=== PATIENT | female | born 1945 | race Caucasian/White ===

== ENCOUNTER 2016-10-15 04:05 | Emergency (ER) | payer MEDICARE, MEDICAID ==
[~2016-10-15] VITALS: Ht 160 cm; Wt 52.3 kg
[2016-10-15 04:19] VITALS: BP 145/70; PULSE 88; RESP 16; O2SAT 100
--- NOTE | 2016-10-15 04:22 | ED.REPORT ---
HPI-Abd Pain F 40 and Over Date of Service Oct 15, 2016 ED Provider: Anival Huston MD Patient is a 70 year old female with a history of breast cancer s/p lumpectomy who presents to the ED due to right sided abdominal pain that began yesterday morning. The patient states that the pain begins when she stands up and improves whenever she sits down. This pattern happened several times yesterday. However since 8pm last night the pain was constant, no matter the position. She states that the pain sometimes radiates to her back. Patient reports similar pain in the past, but it always resolved. Patient has previously had an appendectomy and . She denies a history of kidney stones but she has previously had a UTI. Patient admits to nausea and subjective fever but denies dysuria, diarrhea, or vomiting. Nursing Notes Stated Complaint: PAIN ON RIGHT SIDE Chief Complaint: Female Abdominal Pain Nursing Notes Reviewed: Yes Allergies: Uncoded Allergies: DAIRY (Allergy, Intermediate, 10/15/16) General Time Seen by MD: 04:19 Chief Complaint Abdominal pain Hx Obtained From: Patient Arrived By: Walk-in Sudden in Onset?: No Onset Occurred: 21 - 23 hours ago Symptom Duration: Intermittent (constant since 8pm) Progression since Onset: Gradually worsening Location: : Diffuse (right sided) Quality: Painful Radiation: : Does not radiate Severity: Current: Moderate Severity: Maximum: Severe Recent Healthcare: No recent doctor visit, No recent hospitalization Similar Sx Previous: No Past Medical History Past Medical History breast cancer osteoporosis Past Surgical History lumpectomy and lymph node removal for breast cancer Reports: Appendectomy, Smoking History Unknown if Ever Smoker Social History Other Social History: Good social support, , Local resident Ambulatory Status Independent Review of Systems Constitutional: Reports: Fever (subjective) GI: Reports: Abdominal pain, Nausea, Denies: Diarrhea, Vomiting Female: Denies: Dysuria, Flank pain Complete sys rev & neg: except as marked. Physical Exam Vital Signs Vital Signs (First) Date Time Temp Pulse Resp B/P Pulse Ox O2 Delivery O2 Flow Rate FiO2 10/15/16 04:19 36.8 88 16 145/70 100 Room Air Initial VS: Reviewed, Vital signs normal Head / Eyes: Atraumatic, Normocephalic, PERRL Neck: Supple, Full range of motion Extremities: Vascular intact, Neuro intact Skin: Warm, Dry, No cyanosis Neurologic: Alert, Oriented, Nonfocal Psychiatric: Mood/affect normal, Behavior normal, Normal thought content General/Constitutional: Awake, Alert Distress / Hydration: Positive: Dehydration mild Behavior: Positive: Anxious Respiratory / Chest: Breath sounds NL, Breath sounds = bilat, No respiratory distress, No rales, No rhonchi, No wheezing Cardiovascular: Heart rate NL, Regular rhythm, Heart sounds NL Abdomen: Soft Tenderness/Guarding/Rebound: Negative: Murdock's sign positive tender right lateral abdominal wall, diffuse, nonlocalized Back: No CVA tenderness ENT: Airway patent Mouth: Positive: Mucous membranes dry (lips dry) Interpretation & Diagnostics Lab Results Interpretation Result Diagram: 10/15/16 0440 10/15/16 0440 Test 10/15/16 04:40 White Blood Count 8.4th/mm3 (3.8-10.1) Red Blood Count 4.31mil/mm3 (3.90-5.20) Hemoglobin 13.1g/dL (12.0-15.6) Hematocrit 38.1% (35.0-46.0) Mean Corpuscular Volume 88.4fL (81-100) Mean Corpuscular Hemoglobin 30.4pg (27.0-35.0) Mean Corpuscular Hemoglobin Concent 34.4% (32.0-37.0) Red Cell Distribution Width 12.7% (12.3-15.4) Platelet Count 205bil/L (150-400) Neutrophils (%) (Auto) 92.0% (40-74) Lymphocytes (%) (Auto) 5.2% (14-46) Monocytes (%) (Auto) 2.1% (4-12) Eosinophils (%) (Auto) 0% (0-5) Basophils (%) (Auto) 0.1% (0-3) Sodium Level 132mEq/L (134-144) Potassium Level 4.1mEq/L (3.5-5.2) Chloride Level 93mEq/L (97-108) Carbon Dioxide Level 22mmol/L (18-29) Blood Urea Nitrogen 9mg/dL (8-27) Creatinine 0.55mg/dL (0.57-1.00) Estimat Glomerular Filtration Rate 157mL/min (>59) Glucose Level 160mg/dL (60-99) Calcium Level 9.2mg/dL (8.5-10.1) Magnesium Level 1.8mg/dL (1.6-2.6) Total Bilirubin 0.6mg/dL (0.0-1.2) Aspartate Amino Transf (AST/SGOT) 21U/L (0-50) Alanine Aminotransferase (ALT/SGPT) 14U/L (0-32) Alkaline Phosphatase 93U/L (25-165) Total Protein 7.1g/dL (6.4-8.4) Albumin 4.7g/dL (3.4-5.0) Lipase 38U/L (13-60) Hold Mcmanus Top Tube Received (Received) Lab values outside NL range: no clinical significance. Lab Results Interpretation: Mildly elevated nonfasting glucose Re-Eval/Medical Decision Med Decision/Clinical Course 70-year-old female with right flank pain. Evaluation was initiated by a bee with normal labs. She is currently getting a CT scan of her abdomen and her care will be turned over change of shift to Dr. Parada for disposition. Discharge & Departure Shift Change Sign-Out Patient Care Transferred: Yes Laboratory Evaluation: Back, reviewed by me Imaging Studies: Ordered, not yet done Awaiting CT scan Primary Impression: Right sided abdominal pain Referrals: Jeremisa Mcelroy DO (PCP) Care Transferred to: Dr. Parada Care Transferred at: 06:00 Octavio Attestation Portions of this note were transcribed by Rebeca Gu. I, Dr. Huston personally performed the history, physical exam and medical decision-making; I reviewed and confirmed the accuracy of the information in the transcribed note. Signed by: Octavio Shin, 10/15/2016 0551 copies to: Jeremias Mcelroy Howard L MD Oct 15, 2016 04:21 Rebeca Gu Oct 15, 2016 04:29
[2016-10-15] MEDS ORDERED: 0.9% Sodium Chloride 1,000 ML IV ONE (04:28)
[2016-10-15] MEDS ORDERED: Ondansetron 2 mg/mL 2 mL Inj IVPUSH PRN (04:30)
[2016-10-15 04:50] LABS: BASOPHILS % (AUTO) 0.1 % (0-3); EOSINOPHILS % (AUTO) 0 % (0-5); MONOCYTES % (AUTO) 2.1 % (4-12); Mean Corpuscular Hemoglobin 30.4 pg (27.0-35.0); Mean Corpuscular Volume 88.4 fL (81-100); Platelet Count 205 bil/L (150-400)
[2016-10-15] MEDS: HYDROmorphone 0.5 mg/0.5 mL iSecure Syringe IVPUSH PRN ×3 (04:52→07:14)
[2016-10-15 05:20] LABS: Magnesium 1.8 mg/dL (1.6-2.6)
[2016-10-15 07:17] VITALS: BP 118/44; PULSE 84; RESP 10; O2SAT 95
[2016-10-15] MEDS ORDERED: HYOS0.1217 PO (09:11)
[2016-10-15 09:21] VITALS: BP 115/58; PULSE 76; RESP 14; O2SAT 97
--- NOTE | 2016-10-15 10:05 | DRSVH ---
PROCEDURE: CT ABDOMEN AND PELVIS WITH CONTRAST ([id number]) INDICATIONS: abd pain TECHNIQUE: After the administration of intravenous contrast, 5 mm thick sections acquired from the diaphragm to the symphysis. 5 mm coronal and sagittal reformats were acquired. For radiation dose reduction, the following was used: automated exposure control, adjustment of mA and/or kV according to patient siz e. COMPARISON: None. FINDINGS: Image quality: Excellent. ABDOMEN: Lung bases: Lung bases are clear. Heart size is normal. Solid organs: Liver and spleen are normal in size and enhancement. 1.5 cm diameter cyst noted in the anterior-inferior subsegment of the right lobe of the liver. Gallbladder is within normal limits. B iliary system is non dilated. Pancreas enhances normally. Pancreas contains a 0.9 cm in diameter cys tic lesion in the posterior margin of the body. The pancreatic cyst appears to connect with the main pancreatic duct suggestive of a sidebranch type intraductal papillary mucinous neoplasm (IPMN), howev er the lesion is nonspecific in imaging characteristics and other etiologies including serous cystic neoplasm and pseudocyst could have a similar appearance No adrenal nodules. Kidneys demonstrate norm al size without hydronephrosis. There is a 1.6 cm diameter heterogeneous enhancing mass in the inferi or pole of the left kidney suspicious for primary malignancy such as renal cell carcinoma. Peritoneum and bowel: Bowel loops demonstrate normal wall thickness and caliber. Large amount of sto ol noted throughout the colon No free air. Small amount of free fluid is noted in the pelvis adjacen t to a midline cystic pelvic mass. The appendix is not visualized and cannot be evaluated. Nodes and vessels: No retroperitoneal or mesenteric adenopathy by size criteria. Aorta and inferior vena cava are normal in size. Miscellaneous: No ventral hernias. PELVIS: Genitourinary: Bladder wall thickness is normal. Miscellaneous: No inguinal hernias or adenopathy. There is a large 8.8 x 7.3 x 6.3 cm cystic lesion in the midline of the lower pelvis. The lesion has relatively thick, irregular wall and septations al shabana its superior margin. Findings suspicious for cystic neoplasm arising from the left adnexa. Recomm end pelvic ultrasound and gynecology consultation for further evaluation. Bones: No suspicious bony lesions. No vertebral body compression fractures. Spine degenerative disc disease and facet arthropathy are noted. IMPRESSION: 1. Large cystic mass in the midline of the pelvis which has internal septations and irregular wall. L esion is suspicious for cystic neoplasm arising from left adnexa. Recommend gynecology consultation a nd pelvic ultrasound for further evaluation. 2. 0.9 cm diameter cystic lesion in the body of the pancreas which could represent IPMN, serous cysti c neoplasm or small pseudocyst. 3. Heterogeneous enhancing mass in the inferior pole left kidney suspicious for a primary neoplasm lemus ch as renal cell carcinoma. 3. Severe fecal loading throughout the colon. Please correlate clinical findings to exclude constipat ion. 4. The appendix is not visualized. Early manifestation of appendicitis cannot be excluded. Dictated by: Bettye Paul MD, PhD on 10/15/2016 at 9:42 Approved by: Bettye Paul MD, PhD on 10/15/2016 at 10:03
== END 2016-10-15 09:27 ==
LOC: SED 04:05
DX: R10.9 Unspecified abdominal pain (principal); N83.202 Unspecified ovarian cyst, left side; Z90.49 Acquired absence of other specified parts of digestive tract; Z85.3 Personal history of malignant neoplasm of breast
CPT/HCPCS: 36415; 74177; 80053; 83690; 83735; 85025; 96361; 96374; 96375; 96376; 99285; J1170; J2405; J7030; Q9967